=== PATIENT | male | born 1970 | race Caucasian/White ===

== ENCOUNTER → 2023-01-19 14:45 | Outpatient (CLI) | payer BC, SELFPAY ==
--- NOTE | ~2023-01-19 | XR_ITS ---
XR sacroiliac joints min 3V DATE: 01/19/2023 15:23 INDICATION: Back pain TECHNIQUE: AP and bilateral oblique views COMPARISON: None FINDINGS: The sacroiliac joints appear normal, without erosive change, ankylosis or any significant d egenerative change. No fracture or bone destruction of the sacrum is evident. IMPRESSION: Negative Reviewed, dictated and finalized at [facility]. Reviewed, dictated and finalized at location B. IMPRESSION: Negative
--- NOTE | ~2023-01-19 | XR_ITS ---
XR lumbar spine min 4V DATE: 01/19/2023 15:23 INDICATION: Back pain TECHNIQUE: AP, lateral, coned lateral lumbosacral and bilateral oblique views COMPARISON: None FINDINGS: Mild thoracolumbar levoscoliosis. 1 anterolisthesis at L4-5, presumably due to degenerative change at the apophyseal joints. There is mild degenerative spurring at L3-4 and L4-5. Lumbar and lumbosacral interspaces are relative ly preserved. No fracture or bone destruction or spondylolisthesis. The lumbar pedicles are intact. The sacroiliac joints appear normal. IMPRESSION: Mild degenerative change Reviewed, dictated and finalized at location B. IMPRESSION: Mild degenerative change
== END ==
PROVIDERS: PCP Family Medicine; Visit Provider Physician Assistant
DX: M54.9 Dorsalgia, unspecified (principal); M51.36 Other intervertebral disc degeneration, lumbar region
CPT/HCPCS: 72110; 72202

== ENCOUNTER 2023-02-13 01:26 | Day surgery (SDC) | payer BC, SELFPAY ==
[2023-02-02 14:55] VITALS: BMI 27.3
[2023-02-13 09:02] VITALS: BP 133/79; PULSE 73; RESP 16; TEMP 36.3; O2SAT 99
[2023-02-13] MEDS: LACTATED RINGERS 1,000 ML 150 ML IV CONT (09:13)
--- NOTE | 2023-02-13 09:35 | PM.HPGS ---
History of Present Illness History of Present Illness Consent: Risks, benefits, and alternatives have been discussed and questions answered. Patient agrees to proceed with procedure. Chief complaint: positive cologuard test Narrative: Rajat Conner is a 53 year old male Presents for screening colonoscopy. Patient recently found to have positive Cologuard test. Patient reports that his current weight appetite and bowel movements are normal. Patient denies abdominal pain. He has had no bleeding. Family history noncontributory. Patient's past medical history is significant for Parkinson's disease. Review of Systems Review of Systems: Review of systems noncontributory. [facility] Past Medical History Medical History (Updated 02/13/23 @ 09:37 by Chito Kamara MD) Elevated BP without diagnosis of hypertension Family history of heart disease Other fatigue Parkinsons disease Surgical History Surgical History (Updated 01/06/23 @ 10:59 by Juanita Zuluaga CMA) S/P deep brain stimulator placement Family History Family History Mother Hypertension Father Hypertension Patient's father is , Onset Age: 49 Grandparent Hypertension Social History Social History (Updated 01/06/23 @ 11:02 by Juanita Zuluaga CMA) Smoking status: Never smoker Second hand tobacco smoke exposure: No Alcohol intake: current Alcohol use details: rarely Substance use: never Substance use type: does not use Lack of Transportation: No Lack of Food: Never True Current Housing: I Have Housing Concerned About Future Housing: No Difficulty Paying Gas/Electric Bills: No Difficulty Paying for Meds: No Currently Unemployed: No Education: Bachelor's Degree Difficulty w/ Childcare or Family Care: No Living arrangements: with family Gender identity (if verbalized by the patient): Male Spiritual care concerns: No Meds Home Medications and Allergies Home Medications Medication Instructions Recorded Confirmed Type amantadine HCl 100 mg capsule 100 mg DAILY 10/28/19 02/02/23 History carbidopa 25 mg-levodopa 100 mg 1 tablet PO Q4H 01/06/23 02/13/23 History tablet carbidopa ER 25 mg-levodopa 100 mg 1 tablet PO QHS 01/06/23 02/02/23 History tablet,extended release docusate sodium 100 mg capsule 300 mg PO BID 01/06/23 02/02/23 History (Colace) melatonin 10 mg capsule 20 mg PO QHS 01/06/23 02/02/23 History rosuvastatin 20 mg tablet (Crestor) 20 mg PO DAILY #90 tabs 01/14/23 02/02/23 Rx fluticasone propionate 50 2 spray intranasal BID PRN Allergy 02/02/23 02/02/23 History mcg/actuation nasal Symptoms spray,suspension triamcinolone acetonide 0.1 % 1 applic topical BID PRN other 02/02/23 02/02/23 History topical cream Allergies Allergy/AdvReac Type Severity Reaction Status Date / Time No Known Allergies Allergy Unknown Verified 02/13/23 08:58 Vital Signs Vital Signs - 24 hr 02/13/23 09:02 Temperature 97.3 F L Pulse Rate 73 Respiratory Rate 16 Blood Pressure 133/79 Pulse Oximetry 99 Oxygen Delivery Room Air Exam Narrative: Physical exam reveals patient to be alert. Vital signs stable. HEENT exam is unremarkable. Patient is anicteric. Lungs are clear to auscultation and percussion. Heart is without murmur or extra sounds. Abdomen bowel sounds are present soft nontender with no hepatosplenomegaly. Digital external rectal exam is normal. Assessment and Plan Assessment and plan (1) Positive colorectal cancer screening using Cologuard test: Code(s): R19.5 - Other fecal abnormalities Status: Acute Assessment and Plan: Patient found to have positive Cologuard test. For this reason screening colonoscopy will be performed.
--- NOTE | 2023-02-13 09:37 | WPDANESEPPF ---
Anes - Initial Pre Proc Eval Procedure: Operation Date: 02/13/23 09:45 Proposed Procedures p Colonoscopy - Chito Kamara MD Date/Time: 02/13/23 09:37 Surgeon: Chito Kamara MD Pre Op Diagnosis: positive cologuard test Patient Data Age: 53 Gender: M Height: 1.8 m Weight: 90.8 kg Last Vital Signs Temp 97.3 F L 02/13/23 09:02 Pulse 73 02/13/23 09:02 Resp 16 02/13/23 09:02 BP 133/79 02/13/23 09:02 Pulse Ox 99 02/13/23 09:02 O2 Del Method Room Air 02/13/23 09:02 Allergies Allergy/AdvReac Type Severity Reaction Status Date / Time No Known Allergies Allergy Unknown Verified 02/13/23 08:58 Home Medications Medication Instructions Recorded Confirmed Type amantadine HCl 100 mg capsule 100 mg DAILY 10/28/19 02/02/23 History carbidopa 25 mg-levodopa 100 mg 1 tablet PO Q4H 01/06/23 02/13/23 History tablet carbidopa ER 25 mg-levodopa 100 mg 1 tablet PO QHS 01/06/23 02/02/23 History tablet,extended release docusate sodium 100 mg capsule 300 mg PO BID 01/06/23 02/02/23 History (Colace) melatonin 10 mg capsule 20 mg PO QHS 01/06/23 02/02/23 History rosuvastatin 20 mg tablet (Crestor) 20 mg PO DAILY #90 tabs 01/14/23 02/02/23 Rx fluticasone propionate 50 2 spray intranasal BID PRN Allergy 02/02/23 02/02/23 History mcg/actuation nasal Symptoms spray,suspension triamcinolone acetonide 0.1 % 1 applic topical BID PRN other 02/02/23 02/02/23 History topical cream Patient hx anesthesia problems: none Family hx anesthesia problems: none Results Review: All pre-operative results and documents have been reviewed as part of the pre-operative evaluation. [facility] Past Medical History Medical History (Updated 02/13/23 @ 09:37 by Chito Kamara MD) Elevated BP without diagnosis of hypertension Family history of heart disease Other fatigue Parkinsons disease Surgical History Surgical History (Updated 01/06/23 @ 10:59 by Juanita Zuluaga CMA) S/P deep brain stimulator placement Family History Family History Mother Hypertension Father Hypertension Patient's father is , Onset Age: 49 Grandparent Hypertension Social History Social History (Updated 01/06/23 @ 11:02 by Juanita Zuluaga CMA) Smoking status: Never smoker Second hand tobacco smoke exposure: No Alcohol intake: current Alcohol use details: rarely Substance use: never Substance use type: does not use Lack of Transportation: No Lack of Food: Never True Current Housing: I Have Housing Concerned About Future Housing: No Difficulty Paying Gas/Electric Bills: No Difficulty Paying for Meds: No Currently Unemployed: No Education: Bachelor's Degree Difficulty w/ Childcare or Family Care: No Living arrangements: with family Gender identity (if verbalized by the patient): Male Spiritual care concerns: No Anes - Eval Final PreProcedure Day of Procedure 02/13/23 09:37 Patient weight: normal Heart: regular rate and rhythm Lungs: clear to auscultation Airway: Mallampati scale class II Neurological: alert and oriented Last oral intake: >/= 8 hours ASA classification: III Emergent: no Anesthetic plan: proceed Anesthesia type and monitoring: general and standard monitoring Results Review: All pre-operative results and documents have been reviewed as part of the pre-operative evaluation. Informed Consent: The patient's anesthetic plan and its attendant risks and benefits were discussed with the patient/family/POA. Questions were solicited and answers provided to the satisfaction of the patient/family/POA.
[2023-02-13 10:12] VITALS: BP 109/70; PULSE 72; RESP 18; O2SAT 97
[2023-02-13 10:22] VITALS: BP 110/74; PULSE 67; RESP 20; O2SAT 98
[2023-02-13 10:32] VITALS: BP 125/84; PULSE 71; RESP 18; O2SAT 96
== END 2023-02-13 10:38 | disposition home or self-care (01) ==
PROVIDERS: PCP Family Medicine; Visit Provider Internal Medicine Gastroenterology
PROC: 0DJD8ZZ Inspection of Lower Intestinal Tract, Via Natural or Artificial Opening Endoscopic (ICD-10-PCS; CPT 45378; principal; 2023-02-13 09:45)
DX: R19.5 Other fecal abnormalities (principal); D12.8 Benign neoplasm of rectum; G20 Parkinson's disease
CPT/HCPCS: 45385; 88305; J2704; J7120

== ENCOUNTER → 2023-03-17 13:18 | Outpatient (CLI) | payer BC, SELFPAY ==
--- NOTE | ~2023-03-17 | CT_ITS ---
EXAMINATION: CT lumbar spine wo con DATE: 03/17/2023 13:39 INDICATION: Lumbar radiculopathy. TECHNIQUE: Computed tomography (CT) of the lumbar spine was performed without intravenous contrast. A utomated exposure control and iterative reconstruction technique were employed. The dose-length produ ct was 833.33 mGy-cm. COMPARISON: Lumbar spine radiographs 01/19/2023 FINDINGS: There are two 3 mm stones in right kidney. There is 3 degrees levocurvature of lumbar spine . Vertebral body heights are normal. There is mildly decreased disc height at L4-L5. The following di sc levels are specifically discussed: L1-L2: The disc does not extend beyond the endplate margin. There is moderate bilateral facet joint o steoarthritis. There is no neural foraminal stenosis. There is no central canal stenosis. L2-L3: The disc is bulging. There is mild right and severe left facet joint osteoarthritis. There is mild bilateral neural foraminal stenosis. There is mild central canal stenosis. L3-L4: The disc is bulging. There is severe right and mild left facet joint osteoarthritis. There is mild bilateral neural foraminal stenosis. There is mild central canal stenosis. L4-L5: The disc is bulging. There is severe bilateral facet joint osteoarthritis. There is mild right and moderate left neural foraminal stenosis. There is moderate central canal stenosis. L5-S1: The disc is bulging. There is moderate bilateral facet joint osteoarthritis. There is mild darius ateral neural foraminal stenosis. There is mild central canal stenosis. IMPRESSION: 1. Moderate spondylosis at L4-L5 and mild spondylosis at other levels. Reviewed, dictated and finalized at location A.
== END ==
PROVIDERS: PCP Family Medicine; Visit Provider Physical Medicine & Rehabilitation
DX: M47.26 Other spondylosis with radiculopathy, lumbar region (principal)
CPT/HCPCS: 72131

== ENCOUNTER 2023-04-16 09:31 | Outpatient (CLI) | payer BC, SELFPAY ==
--- NOTE | 2023-04-16 11:00 | NEURO_ITS ---
Impression: # Complains of numbness of hands. History of Parkinsonism for over 10 years.. # No Carpal Tunnel Syndrome # Bilateral ulnar neuropathy across the elbows. # Needle/EMG exam revealed rhythmic tremors but no fibrillations in upper extremities. Nerve Conduction Studies Anti Sensory Summary Table Stim Site NR Peak (ms) P-T Amp (?V) Site1 Site2 Delta-P (ms) Dist (cm) Evert (m/s) Left Median Anti Sensory (2-3nd Digit) Wrist 3.0 29.1 Wrist 2-3nd Digit 3.0 14.0 47 Wrist 2.8 28.9 Wrist 2-3nd Digit 3.0 14.0 47 Right Median Anti Sensory (2-3nd Digit) Wrist 2.9 58.7 Wrist 2-3nd Digit 2.9 14.0 48 Wrist 2.5 38.3 Wrist 2-3nd Digit 2.9 14.0 48 Left Radial Anti Sensory (Base 1st Digit) Wrist 2.1 26.4 Wrist Base 1st Digit 2.1 0.0 Right Radial Anti Sensory (Base 1st Digit) Wrist 2.2 22.2 Wrist Base 1st Digit 2.2 0.0 Left Ulnar Anti Sensory (5th Digit) Wrist 2.9 36.9 Wrist 5th Digit 2.9 14.0 48 Right Ulnar Anti Sensory (5th Digit) Wrist 3.6 4.0 Wrist 5th Digit 3.6 14.0 39 Motor Summary Table Stim Site NR Onset (ms) O-P Amp (mV) Site1 Site2 Delta-0 (ms) Dist (cm) Evert (m/s) Left Median Motor (Abd Poll Brev) Wrist 3.4 2.8 Elbow Wrist 5.0 30.0 60 Elbow 8.4 3.1 Right Median Motor (Abd Poll Brev) Wrist 3.6 4.5 Elbow Wrist 5.2 27.0 52 Elbow 8.8 3.8 Left Ulnar Motor (Abd Dig Minimi) Wrist 2.5 4.9 A Elbow Wrist 6.6 30.0 45 A Elbow 9.1 2.8 B Elbow Wrist 4.2 26.0 62 B Elbow 6.7 3.4 Right Ulnar Motor (Abd Dig Minimi) Wrist 2.9 1.1 A Elbow Wrist 8.1 31.0 38 A Elbow 11.0 0.4 B Elbow Wrist 3.9 22.0 56 B Elbow 6.8 0.2 F Wave Studies NR F-Lat (ms) L-R F-Lat (ms) Left Median (Mrkrs) (Abd Poll Brev) 29.61 0.08 Right Median (Mrkrs) (Abd Poll Brev) 29.69 0.08 Left Ulnar (Mrkrs) (Abd Dig Min) 30.26 0.79 Right Ulnar (Mrkrs) (Abd Dig Min) 29.47 0.79 EMG Side Muscle Nerve Root Ins Act Fibs Amp Dur Recrt Comment Right 1stDorInt Ulnar C8-T1 Nml Nml Nml Nml Nml Right Ext Indicis Radial (Post Int) C7-8 Nml Nml Nml Nml Nml Right Ext Digitorum Radial (Post Int) C7-8 Nml Nml Nml Nml Nml Right BrachioRad Radial C5-6 Nml Nml Nml Nml Nml Right PronatorTeres Median C6-7 Nml Nml Nml Nml Nml Right Abd Poll Brev Median C8-T1 Nml Nml Nml Nml Nml Left 1stDorInt Ulnar C8-T1 Nml Nml Nml Nml Nml Left Ext Indicis Radial (Post Int) C7-8 Nml Nml Nml Nml Nml Left Ext Digitorum Radial (Post Int) C7-8 Nml Nml Nml Nml Nml Left BrachioRad Radial C5-6 Nml Nml Nml Nml Nml Left PronatorTeres Median C6-7 Nml Nml Nml Nml Nml Left Abd Poll Brev Median C8-T1 Nml Nml Nml Nml Nml Right Biceps Musculocut C5-6 Nml Nml Nml Nml Nml Right Triceps Radial C6-7-8 Nml Nml Nml Nml Nml Right Deltoid Axillary C5-6 Nml Nml Nml Nml Nml Left Biceps Musculocut C5-6 Nml Nml Nml Nml Nml Left Triceps Radial C6-7-8 Nml Nml Nml Nml Nml Left Deltoid Axillary C5-6 Nml Nml Nml Nml Nml MTDD
== END 2023-04-16 09:32 | disposition home or self-care (01) ==
PROVIDERS: PCP Family Medicine; Visit Provider Family Medicine
DX: R20.0 Anesthesia of skin (principal); G56.23 Lesion of ulnar nerve, bilateral upper limbs
CPT/HCPCS: 95886; 95911

== ENCOUNTER 2024-03-06 17:19 | Emergency (ER) | payer BC, SELFPAY ==
--- NOTE | ~2024-03-06 | XR_ITS ---
EXAMINATION: XR finger 1st RT min 2V DATE: 03/06/2024 17:39 INDICATION: Boxing injury with pain and swelling at the right thumb TECHNIQUE: Dorsal palmar, lateral and 2 oblique views of the right first digit were obtained COMPARISON: None FINDINGS: Bone alignment is normal. No acute fracture. Mild polyarticular osteoarthritis at the triscaphe, firs t carpometacarpal, first metacarpophalangeal and first interphalangeal joints. Prominent osteophyte a long the dorsal/radial aspect of the base of the first proximal phalanx which appears more prominent than typical and disproportionate to the relatively mild joint space narrowing. The location and appe arance suggests possibility of either an old healed avulsion fracture fragment or heterotopic ossific ation related to an avulsive soft tissue injury of the extensor pollicis brevis tendon, radial collat eral ligament or joint capsule. Mild soft tissue swelling about the first metacarpophalangeal joint. Multiple projections there are some surgical clips projecting over the ulnar/palmar aspect of the car pus. IMPRESSION: 1. No acute osseous abnormality. Reviewed, dictated and finalized at location A.
[2024-03-06 17:25] VITALS: BP 124/86; PULSE 70; RESP 16; TEMP 36.6; O2SAT 98
--- NOTE | 2024-03-06 17:27 | ED.UPPEXIN ---
HPI - Extremity Injury (Upper) General Chief Complaint: Extremity Injury, Upper Stated Complaint: Rt Thumb Pain Time Seen by Provider: 03/06/24 17:28 Source: patient Mode of arrival: ambulatory Limitations: no limitations History of Present Illness HPI narrative: 54 yo M presents with c/o R thumb pain with swelling. Today pt was wrestling around with son and punching each other, play fighting, and his thumb on his son's arm. Instant pain. Swelling becoming progressively worse. ROM decreased due to pain and swelling. NV intact. all systems reviewed and negative except as noted above. Related Data Home Medications Medication Instructions Recorded Confirmed amantadine HCl 100 mg capsule 100 mg PO BID 10/28/19 03/06/24 carbidopa 25 mg-levodopa 100 mg 1 tablet PO Q4H 01/06/23 03/06/24 tablet carbidopa ER 25 mg-levodopa 100 mg 1 tablet PO QHS 01/06/23 03/06/24 tablet,extended release docusate sodium 100 mg capsule 300 mg PO BID 01/06/23 03/06/24 (Colace) melatonin 10 mg capsule 20 mg PO QHS 01/06/23 03/06/24 fluticasone propionate 50 2 spray intranasal BID PRN Allergy 02/02/23 03/06/24 mcg/actuation nasal Symptoms spray,suspension sildenafil 25 mg tablet 25 mg PO PRN PRN Sexual Activity 03/06/24 03/06/24 Allergies Allergy/AdvReac Type Severity Reaction Status Date / Time No Known Allergies Allergy Unknown Verified 03/06/24 17:23 Review of Systems Review of Systems: CONSTITUTIONAL: Denies fever, chills, or sweats. EYES: Denies visual changes, redness, or discharge. ENT: Denies rhinorrhea, congestion, sore throat, or otalgia. CARDIOVASCULAR: Denies chest pain, palpitations, or edema. RESPIRATORY: Denies cough or dyspnea. GASTROINTESTINAL: Denies abdominal pain, nausea, vomiting, or diarrhea. GENITOURINARY: Denies dysuria or hematuria. SKIN: Denies rash or itching. MUSCULOSKELETAL: Denies back pain or myalgia. Reports pain and swelling to right thumb. NEUROLOGIC: Denies headache, numbness, or weakness. PSYCHIATRIC: Denies anxiety or depression. All other systems reviewed are negative, except as documented in HPI. [facility] Past Medical History Medical History Elevated BP without diagnosis of hypertension Family history of heart disease Other fatigue Parkinsons disease Ulnar neuropathy of both upper extremities Surgical History Surgical History S/P deep brain stimulator placement Family History Family History Mother Hypertension Father Hypertension Patient's father is , Onset Age: 49 Grandparent Hypertension Social History Social History Smoking status: Never smoker Second hand tobacco smoke exposure: No Alcohol intake: current Alcohol use details: rarely Substance use: never Substance use type: does not use Lack of Transportation: No Lack of Food: Never True Current Housing: I Have Housing Concerned About Future Housing: No Difficulty Paying Gas/Electric Bills: No Difficulty Paying for Meds: No Currently Unemployed: No Education: Bachelor's Degree Difficulty w/ Childcare or Family Care: No Living arrangements: with family Gender identity (if verbalized by the patient): Male Spiritual care concerns: No Comments At time of signature, agree with nursing past medical, surgical, social and family history. There is no relevant family history pertinent to the presenting complaint. Exam Narrative: GENERAL: This is a well-nourished, well-developed patient, in no apparent distress. HEAD: normocephalic, atraumatic. EYES: PERRL. Sclera clear/white. Vision is grossly intact. EARS: External ears normal NOSE: External nose normal NECK: Neck supple, non-tender without lymphadenopath
== END 2024-03-06 18:10 | disposition home or self-care (01) ==
PROVIDERS: Emergency Provider Nurse Practitioner Family; PCP Family Medicine
DX: S63.601A Unspecified sprain of right thumb, initial encounter (principal); Y93.83 Activity, rough housing and horseplay; Y93.9 Activity, unspecified; G20.A1 Parkinson's disease without dyskinesia, without mention of fluctuations; Z96.82 Presence of neurostimulator
CPT/HCPCS: 29130; 73140; 99213; G0463

== ENCOUNTER 2024-09-21 08:30 | Emergency (ER) | payer BC, SELFPAY ==
[2024-09-21 08:39] VITALS: BP 128/87; PULSE 91; RESP 16; TEMP 36.9; O2SAT 96
--- NOTE | 2024-09-21 08:51 | ED.EAR ---
HPI - Ear Problem General Chief complaint: Ear Stated complaint: RT Ear Pain Time Seen by Provider: 09/21/24 08:51 Source: patient Mode of arrival: ambulatory Limitations: no limitations History of Present Illness HPI Narrative: 54-year-old male presents with complaint of right ear pain for 2 days. Patient reports pain, muffled hearing and drainage from right ear. Afebrile. All systems reviewed and negative except as noted above. Related Data Home Medications Medication Instructions Recorded Confirmed amantadine HCl 100 mg capsule 100 mg PO BID 10/28/19 09/21/24 carbidopa 25 mg-levodopa 100 mg 1 tablet PO Q4H 01/06/23 09/21/24 tablet carbidopa ER 25 mg-levodopa 100 mg 1 tablet PO QHS 01/06/23 09/21/24 tablet,extended release docusate sodium 100 mg capsule 300 mg PO BID 01/06/23 09/21/24 (Colace) melatonin 10 mg capsule 20 mg PO QHS 01/06/23 09/21/24 fluticasone propionate 50 2 spray intranasal BID PRN Allergy 02/02/23 09/21/24 mcg/actuation nasal Symptoms spray,suspension sildenafil 25 mg tablet 25 mg PO PRN PRN Sexual Activity 03/06/24 09/21/24 Allergies Allergy/AdvReac Type Severity Reaction Status Date / Time No Known Allergies Allergy Unknown Verified 09/21/24 08:36 Review of Systems Review of Systems: CONSTITUTIONAL: Denies fever, chills, or sweats. EYES: Denies visual changes, redness, or discharge. ENT: Denies rhinorrhea, congestion, sore throat . Reports right ear pain, muffled hearing and drainage. CARDIOVASCULAR: Denies chest pain, palpitations, or edema. RESPIRATORY: Denies cough or dyspnea. GASTROINTESTINAL: Denies abdominal pain, nausea, vomiting, or diarrhea. GENITOURINARY: Denies dysuria or hematuria. SKIN: Denies rash or itching. MUSCULOSKELETAL: Denies back pain, joint pain, or myalgia. NEUROLOGIC: Denies headache, numbness, or weakness. PSYCHIATRIC: Denies anxiety or depression. All other systems reviewed are negative, except as documented in HPI. [facility] Past Medical History Medical History Elevated BP without diagnosis of hypertension Family history of heart disease Other fatigue Parkinsons disease Ulnar neuropathy of both upper extremities Surgical History Surgical History S/P deep brain stimulator placement Family History Family History Mother Hypertension Father Hypertension Patient's father is , Onset Age: 49 Grandparent Hypertension Social History Social History Smoking status: Never smoker Second hand tobacco smoke exposure: No Alcohol intake: current Alcohol use details: rarely Substance use: never Substance use type: does not use Lack of Transportation: No Lack of Food: Never True Current Housing: I Have Housing Concerned About Future Housing: No Difficulty Paying Gas/Electric Bills: No Difficulty Paying for Meds: No Currently Unemployed: No Education: Bachelor's Degree Difficulty w/ Childcare or Family Care: No Living arrangements: with family Gender identity (if verbalized by the patient): Male Spiritual care concerns: No Comments At time of signature, agree with nursing past medical, surgical, social and family history. There is no relevant family history pertinent to the presenting complaint. Exam Narrative: GENERAL: This is a well-nourished, well-developed patient, in no apparent distress. HEAD: normocephalic, atraumatic. EYES: PERRL. Sclera clear/white. Vision is grossly intact. EARS: External ears normal, Left auditory canal is normal. Right canal is erythematous, swollen with purulent yellow drainage. Bilateral TMs normal without perforation. NOSE: External nose normal NECK: Neck supple, non-tender without lymphadenopathy, masses or thyromegaly. CARDIOVASCULAR: Regular rate and rhythm without murmurs, gallops, or rubs. RESPIRATORY: Clear to auscultation. Breath sounds equal bilaterally. No wheezes, rales, or rhonchi. SKIN: warm, Dry, intact with no suspicious lesions or rash, good texture and turgor. NEURO: awake, alert, and oriented to person, place and time. There were no obvious focal neurologic abnormalities. EXTREMITIES: No joint tenderness, effusion, or edema noted. Course Course Level of Care: Express Care Visit Vital Signs Vital signs: Vital Signs Temperature 36.9 C 09/21/24 08:39 Pulse Rate 91 09/21/24 08:39 Respiratory Rate 16 09/21/24 08:39 Blood Pressure 128/87 09/21/24 08:39 Pulse Oximetry 96 09/21/24 08:39 Oxygen Delivery Room Air 09/21/24 08:39 Temperature 36.9 C 09/21/24 08:39 Pulse Rate 91 09/21/24 08:39 Respiratory Rate 16 09/21/24 08:39 Blood Pressure 128/87 09/21/24 08:39 Pulse Oximetry 96 09/21/24 08:39 Oxygen Delivery Room Air 09/21/24 08:39 Reviewed Medical Decision Making MDM Narrative Medical decision making narrative: Patient is aware of diagnosis, understands and agrees to treatment plan. Anticipatory guidance given. Patient agrees to follow-up as directed and is aware of reasons to seek care at the emergency department. Portions of this record may have been created with voice recognition software Vital Signs Vital Signs: Vital Signs Temperature 36.9 C 09/21/24 08:39 Pulse Rate 91 09/21/24 08:39 Respiratory Rate 16 09/21/24 08:39 Blood Pressure 128/87 09/21/24 08:39 Pulse Oximetry 96 09/21/24 08:39 Oxygen Delivery Room Air 09/21/24 08:39 Temperature 36.9 C 09/21/24 08:39 Pulse Rate 91 09/21/24 08:39 Respiratory Rate 16 09/21/24 08:39 Blood Pressure 128/87 09/21/24 08:39 Pulse Oximetry 96 09/21/24 08:39 Oxygen Delivery Room Air 09/21/24 08:39 Discharge Plan Discharge Clinical Impression: Otitis externa of right ear Qualifiers: Chronicity: acute Patient Disposition: Home, Self-Care Condition: Stable Instructions: Antibiotic Form, Swimmer's Ear (ED) Additional Instructions: Place antibiotic ear drops as prescribed. Take tyelnol or ibuprofen every 6 to 8 hours as needed for pain. Follow-up with your primary care physician if symptoms not improving. Prescriptions: New ofloxacin 0.3 % drops 10 drp RIGHT EAR DAILY 7 Days Qty: 5 0RF No Action amantadine HCl 100 mg capsule 100 mg PO BID carbidopa-levodopa 25-100 mg tablet 1 tablet PO Q4H Patient Comments: While awake sildenafil 25 mg tablet 25 mg PO PRN PRN (Reason: Sexual Activity) carbidopa-levodopa 25-100 mg tablet extended release 1 tablet PO QHS docusate sodium [Colace] 100 mg capsule 300 mg PO BID melatonin 10 mg capsule 20 mg PO QHS fluticasone propionate 50 mcg/actuation spray,suspension 2 spray NASAL BID PRN (Reason: Allergy Symptoms) Rx Instructions: administer into each nostril rosuvastatin 20 mg tablet 20 mg PO DAILY Qty: 90 2RF Follow-up/Referrals: Balbina Quiñonez MD [Primary Care Provider] - Time of Disposition: 08:56
== END 2024-09-21 08:58 | disposition home or self-care (01) ==
PROVIDERS: Emergency Provider Nurse Practitioner Family; PCP Family Medicine
DX: H60.91 Unspecified otitis externa, right ear (principal); G20.A1 Parkinson's disease without dyskinesia, without mention of fluctuations
CPT/HCPCS: 99213; G0463

== ENCOUNTER 2024-09-24 12:29 | Emergency (ER) | payer BC, SELFPAY ==
[2024-09-24 12:42] VITALS: BP 121/75; PULSE 94; RESP 18; TEMP 36.9; O2SAT 97
--- NOTE | 2024-09-24 12:52 | ED.URI ---
HPI - URI/Sore Throat General Chief Complaint: Upper Respiratory Infection Stated Complaint: coughing and sinus irritation Time Seen by Provider: 09/24/24 12:55 Source: patient, RN notes reviewed and old records reviewed Mode of arrival: ambulatory Limitations: no limitations History of Present Illness HPI Narrative: 54-year-old male presents to the [facility] with sinus congestion, coughing. Patient reports he has had symptoms for 2 weeks. Still having ear discomfort. Was seen 3 days ago for ear pain, diagnosed with an otitis externa. Was prescribed ear drops. Onset (ago): week(s) (2) Treatments prior to arrival: other (Ear drops) Related Data Home Medications Medication Instructions Recorded Confirmed amantadine HCl 100 mg capsule 100 mg PO BID 10/28/19 09/24/24 carbidopa 25 mg-levodopa 100 mg 1 tablet PO Q4H 01/06/23 09/24/24 tablet carbidopa ER 25 mg-levodopa 100 mg 1 tablet PO QHS 01/06/23 09/24/24 tablet,extended release docusate sodium 100 mg capsule 300 mg PO BID 01/06/23 09/24/24 (Colace) melatonin 10 mg capsule 20 mg PO QHS 01/06/23 09/24/24 fluticasone propionate 50 2 spray intranasal BID PRN Allergy 02/02/23 09/24/24 mcg/actuation nasal Symptoms spray,suspension sildenafil 25 mg tablet 25 mg PO PRN PRN Sexual Activity 03/06/24 09/24/24 Allergies Allergy/AdvReac Type Severity Reaction Status Date / Time No Known Allergies Allergy Unknown Verified 09/24/24 12:56 Review of Systems Review of Systems: All systems reviewed & are unremarkable except as noted in HPI and below Constitutional: Constitutional: Reports no additional constitutional complaints ENT: Reports as per HPI, Reports otalgia and Reports nasal congestion Cardiovascular: Cardiovascular: Reports no additional cardiovascular complaints, Denies chest pain and Denies dyspnea Respiratory: Respiratory: Reports as per HPI, Denies chest congestion, Reports cough and Denies dyspnea Gastrointestinal: Gastrointestinal: Reports no additional gastrointestinal complaints, Denies abdominal pain, Denies nausea and Denies vomiting Musculoskeletal: Musculoskeletal: Reports no additional musculoskeletal complaints Integumentary/Breasts: Skin/Breast: Reports system reviewed and no additional complaints, except as docu PMFSH Past Medical History Medical History Elevated BP without diagnosis of hypertension Family history of heart disease Other fatigue Parkinsons disease Ulnar neuropathy of both upper extremities Surgical History Surgical History S/P deep brain stimulator placement Family History Family History Mother Hypertension Father Hypertension Patient's father is , Onset Age: 49 Grandparent Hypertension Social History Social History Smoking status: Never smoker Second hand tobacco smoke exposure: No Alcohol intake: current Alcohol use details: rarely Substance use: never Substance use type: does not use Lack of Transportation: No Lack of Food: Never True Current Housing: I Have Housing Concerned About Future Housing: No Difficulty Paying Gas/Electric Bills: No Difficulty Paying for Meds: No Currently Unemployed: No Education: Bachelor's Degree Difficulty w/ Childcare or Family Care: No Living arrangements: with family Gender identity (if verbalized by the patient): Male Spiritual care concerns: No Comments At the time of my signature, I reviewed and agree with the nursing past medical, surgical, social, and family history. There is no relevant family history pertinent to the patient complaint. Exam Const: General: cooperative, healthy appearing, comfortable, no acute distress, well developed, alert and well nourished Nutritional Appearance: well nourished Orientation/consciousness: patient oriented x3 Limitations: no limitations HENMT: Head: normal to inspection Ears: hearing grossly normal bilaterally, external ears normal, TM's normal bilaterally and Abnormal EAC present erythema on the right, edema on the right and otic discharge purulent on the right Face/Nose/Sinus: Normal external nose present, normal facial exam and face symmetric Face and sinus: normal facial exam and face symmetric Mouth: Yes Normal oral and palatal mucosa present, Yes lip normal and Yes tongue normal Throat: posterior oropharynx normal, uvula midline, postnasal drainage and no uvular edema Eyes: General: appearance normal, both eyes and all related structures Alignment and Position: alignment normal Periorbital: periorbital findings normal Neck: Neck: normal visual inspection, full ROM, no lymphadenopathy and no meningeal signs Chest: Chest palpation & inspection: normal inspection of the chest Resp: Effort & Inspection: normal respiratory effort and able to speak in complete sentences Auscultation: clear to auscultation bilaterally, no crackles, no rales, no rhonchi and no wheezes Cardio: Rate: regular rate Skin: General skin exam: normal color and no rashes or lesions noted Lesions: no lesions Rashes: no rashes Wounds: no wounds Neuro: General: patient oriented x3, gait normal, tone normal, moves all extremities and no meningeal signs Cognition (Neuro): normal cognition Speech: normal speech Gait exam (Neuro): Normal gait present Extrem: General: normal to inspection, full ROM, capillary refill normal and normal gait Psych: Appearance: grossly normal and well kempt Mental Status: mental status grossly normal Speech and movement: Normal speech and movement present and Clear speech present Affect: normal affect Attitude: cooperative Course Course Level of Care: Express Care Visit Vital Signs Vital signs: Vital Signs Temperature 98.4 F 09/24/24 12:42 Pulse Rate 94 09/24/24 12:42 Respiratory Rate 18 09/24/24 12:42 Blood Pressure 121/75 09/24/24 12:42 Pulse Oximetry 97 09/24/24 12:42 Oxygen Delivery Room Air 09/24/24 12:42 Temperature 98.4 F 09/24/24 12:42 Pulse Rate 94 09/24/24 12:42 Respiratory Rate 18 09/24/24 12:42 Blood Pressure 121/75 09/24/24 12:42 Pulse Oximetry 97 09/24/24 12:42 Oxygen Delivery Room Air 09/24/24 12:42 Reviewed MDM - URI/Sore Throat MDM Narrative Medical decision making narrative: Patient sitting comfortably in exam room. Nontoxic, vitals stable. Patient presents with a 2 week history of cough, sinus congestion. Continued discomfort to the right ear. Otitis externa noted to the right ear, encourage patient to follow-up and use ear drops. Two week history of sinus side is, will treat with antibiotic Encourage patient to follow-up with primary care provider in ENT, ENT names and numbers given Patient appropriate for outpatient treatment and follow-up Discharge instructions reviewed with patient, as well as provided in writing per nursing staff. The instructions also include specific and strict return/GO TO THE ER as well as f/u information. All questions have been answered, and the patient deny any further questions with discharge and discharge plan. Some parts of this dictation were generated by voice recognition software and may contain typographical and/or grammatical inaccuracies. Differential Diagnosis Differential diagnosis: Likely upper respiratory infection, otitis media, sinusitis, viral infection and bronchitis Critical Care Time Critical Care Time Critical Care Time: No Discharge Plan Discharge Clinical Impression: Sinusitis, Acute otitis externa of right ear, PND (post-nasal drip) Patient Disposition: Home, Self-Care Condition: Stable Instructions: Antibiotic Form, Sinusitis (ED), Swimmer's Ear (ED), Postnasal Drip (DC) Additional Instructions: Follow-up with your primary care provider and or ENT within 1 week Continue to use ear drops as prescribed Take the oral antibiotic as prescribed For new or worsening symptoms go directly to the emergency room Patient Language: Ukrainian Prescriptions: New amoxicillin-pot clavulanate 875-125 mg tablet 1 tablet PO Q12H Qty: 14 0RF No Action amantadine HCl 100 mg capsule 100 mg PO BID carbidopa-levodopa 25-100 mg tablet 1 tablet PO Q4H Patient Comments: While awake sildenafil 25 mg tablet 25 mg PO PRN PRN (Reason: Sexual Activity) ofloxacin 0.3 % drops 10 drp RIGHT EAR DAILY 7 Days Qty: 5 0RF carbidopa-levodopa 25-100 mg tablet extended release 1 tablet PO QHS docusate sodium [Colace] 100 mg capsule 300 mg PO BID melatonin 10 mg capsule 20 mg PO QHS fluticasone propionate 50 mcg/actuation spray,suspension 2 spray NASAL BID PRN (Reason: Allergy Symptoms) Rx Instructions: administer into each nostril rosuvastatin 20 mg tablet 20 mg PO DAILY Qty: 90 2RF Follow-up/Referrals: Balbina Quiñonez MD [Primary Care Provider] - 3 Days (express care follow up ) Db Pop M.D. [Physician] - Leonardo Freedman MD [Physician] - 3 Days Time of Disposition: 13:03
== END 2024-09-24 13:10 | disposition home or self-care (01) ==
PROVIDERS: Emergency Provider Nurse Practitioner; PCP Family Medicine
DX: J32.9 Chronic sinusitis, unspecified (principal); H60.91 Unspecified otitis externa, right ear; R09.82 Postnasal drip; G20.A1 Parkinson's disease without dyskinesia, without mention of fluctuations; Z96.82 Presence of neurostimulator
CPT/HCPCS: 99213; G0463

== ENCOUNTER 2025-09-19 09:08 | Emergency (ER) | payer BC, SELFPAY ==
--- NOTE | ~2025-09-19 | XR_ITS ---
EXAMINATION: XR ribs RT 2V, 09/19/2025 9:22 [employer] HISTORY: fall on thursday, pain / anterior ribs COMPARISON: No comparisons available. Findings: No acute fracture or malalignment. No significant degenerative changes. Soft tissues unremarkable. Impression: No acute fracture or malalignment. Reviewed, dictated and finalized at location [facility] [facility] Impression: No acute fracture or malalignment.
[2025-09-19 09:14] VITALS: BP 143/82; PULSE 68; RESP 20; TEMP 36.5
--- NOTE | 2025-09-19 09:21 | ED.FALL ---
HPI - Fall General Chief Complaint: Extremity Injury, Upper Stated Complaint: RT Rib Pain Time Seen by Provider: 09/19/25 09:10 Source: patient Mode of arrival: ambulatory Limitations: no limitations History of Present Illness HPI Narrative: Patient is a 55-year-old male who presents with right anterior lateral rib pain for 3 days. States Thursday he slipped getting out of the pool and landed on his ribs. Denies hitting his head, any chest pain or shortness of breath. States pain is worse when he has dyskinesia from his Parkinson's or moving certain directions. Has been taking Tylenol and ibuprofen. Denies any bruising or swelling. Related Data Home Medications ?Medication ?Instructions ?Recorded ?Confirmed ?Last Taken ?Type amantadine HCl 100 mg capsule 100 mg PO BID 10/28/19 03/10/25 Unknown History carbidopa 25 mg-levodopa 100 mg 1 tablet PO Q4H 01/06/23 03/10/25 02/13/23 06:30 History tablet carbidopa ER 25 mg-levodopa 100 mg 1 tablet PO QHS 01/06/23 03/10/25 Unknown History tablet,extended release docusate sodium 100 mg capsule 300 mg PO BID 01/06/23 03/10/25 Unknown History (Colace) melatonin 10 mg capsule 20 mg PO QHS 01/06/23 03/10/25 Unknown History fluticasone propionate 50 2 spray intranasal BID PRN Allergy 02/02/23 03/10/25 Unknown History mcg/actuation nasal Symptoms spray,suspension sildenafil 25 mg tablet 25 mg PO PRN PRN Sexual Activity 03/06/24 03/10/25 Unknown History Allergies Allergy/AdvReac Type Severity Reaction Status Date / Time No Known Allergies Allergy Unknown Verified 09/19/25 09:12 Review of Systems Review of Systems: All systems reviewed & are unremarkable except as noted in HPI and below Constitutional: Constitutional: Denies body ache(s), Denies chills, Denies fatigue, Denies fever(s), Denies headache(s), Denies malaise and Denies weakness Eyes: Eyes: Denies blurry vision, Denies irritation and Denies loss of vision ENT: Denies otalgia, Denies headache(s), Denies nasal discharge, Denies sinus pain and Denies sore throat Cardiovascular: Cardiovascular: Denies chest pain, Denies irregular heart rhythm and Denies dyspnea Respiratory: Respiratory: Denies dyspnea Gastrointestinal: Gastrointestinal: Denies abdominal pain, Denies melena, Denies hematochezia, Denies diarrhea, Denies nausea and Denies vomiting Musculoskeletal: Musculoskeletal: Denies back pain, Reports myalgias and Denies arthralgias Integumentary/Breasts: Skin/Breast: Denies pruritus and Denies rash Neurologic: Denies headache(s), Denies loss of vision and Denies weakness Psychiatric: Psychiatric: Reports no additional psychiatric complaints Endocrine: Endocrine: Denies fatigue PMFSH Past Medical History Medical History Ulnar neuropathy of both upper extremities Parkinsons disease Other fatigue Family history of heart disease Elevated BP without diagnosis of hypertension Surgical History Surgical History S/P deep brain stimulator placement Family History Family History Mother Hypertension Father Hypertension Patient's father is , Onset Age: 49 Grandparent Hypertension Social History Social History Smoking status: Never smoker Second hand tobacco smoke exposure: No Alcohol intake: current Alcohol use details: rarely Substance use: never Substance use type: does not use Lack of Transportation: No Lack of Food: Never True Current Housing: I Have Housing Concerned About Future Housing: No Difficulty Paying Gas/Electric Bills: No Difficulty Paying for Meds: No Currently Unemployed: No Education: Bachelor's Degree Difficulty w/ Childcare or Family Care: No Living arrangements: with family Gender identity (if verbalized by the patient): Male Spiritual care concerns: No Comments At time of signature, agree with nursing past medical, surgical, social and family history. There is no relevant family history pertinent to the presenting complaint. Exam Const: General: cooperative, healthy appearing, comfortable, no acute distress and well nourished Nutritional Appearance: well nourished Orientation/consciousness: patient oriented x3 Limitations: no limitations HENMT: Head: normal to inspection, normocephalic and atraumatic Ears: hearing grossly normal bilaterally and external ears normal Face/Nose/Sinus: Normal external nose present, normal facial exam and face symmetric Face and sinus: normal facial exam and face symmetric Mouth: Yes lip normal Eyes: General: appearance normal, both eyes and all related structures Alignment and Position: alignment normal and position normal Periorbital: periorbital findings normal Eyelids: eyelids normal Pupils: Equal, round and reactive pupils present EOM: EOMs intact bilaterally Neck: Neck: normal visual inspection, full ROM and supple Chest: Chest palpation & inspection: normal inspection of the chest and tenderness rib ( No bruising) anterior-axillary line involving the 8th rib and involving the 9th rib Resp: Effort & Inspection: normal respiratory effort and able to speak in complete sentences Auscultation: clear to auscultation bilaterally Cardio: Rate: regular rate Rhythm: regular rhythm Heart sounds: S1 normal heart sound present and S2 normal heart sound present GI: Inspection: normal to inspection Skin: General skin exam: normal color and no rashes or lesions noted Neuro: General: patient oriented x3 and moves all extremities Cranial nerves: Yes Equal, round and reactive pupils present Speech: normal speech Gait exam (Neuro): Normal gait present Extrem: General: normal to inspection, full ROM and no edema Psych: Appearance: grossly normal and well kempt Mental Status: mental status grossly normal Speech and movement: Normal speech and movement present Affect: normal affect Attitude: cooperative Thought process: Normal thought process present Course Course Emergency Course: Patient is aware of diagnosis, understands and agrees to treatment plan. Anticipatory guidance given. Patient agrees to follow-up as directed and is aware of reasons to seek care at the emergency department. Portions of this record may have been created with voice recognition software Level of Care: Express Care Visit Vital Signs Vital signs: Vital Signs Temperature 36.5 C 09/19/25 09:14 Pulse Rate 68 09/19/25 09:14 Respiratory Rate 20 09/19/25 09:14 Blood Pressure 143/82 H 09/19/25 09:14 Oxygen Delivery Room Air 09/19/25 09:14 Temperature 36.5 C 09/19/25 09:14 Pulse Rate 68 09/19/25 09:14 Respiratory Rate 20 09/19/25 09:14 Blood Pressure 143/82 H 09/19/25 09:14 Oxygen Delivery Room Air 09/19/25 09:14 Reviewed MDM - Fall MDM Narrative Medical decision making narrative: will prescribe muscle relaxers to try to help with spasms. x-ray showed no fractures Pt well hydrated appearing, in no respiratory distress, hemodynamically stable. Recommend supportive care. The patient is stable at time of discharge the clinical impression was discussed and the patient was given the opportunity to ask questions, which were addressed as completely as possible given the information available at present. Anticipatory guidance and return to care precautions were discussed and the importance of primary care follow-up was stressed and encouraged. The patient voiced understanding of the plan, indications to return, and the need for follow-up. Exam findings show no acute concerns or changes Patient is appropriate for outpatient treatment and follow-up. Differential Diagnosis Differential diagnosis: Likely other ( rib contusion, rib fracture) Medical Records Attestation: I reviewed the patient's medical records. Imaging Data Radiologist's impression: EXAMINATION: XR ribs RT 2V, 09/19/2025 9:22 [facility] [employer] HISTORY: fall on thursday, pain 8th/9th anterior ribs COMPARISON: No comparisons available. Findings: No acute fracture or malalignment. No significant degenerative changes. Soft tissues unremarkable. Impression: No acute fracture or malalignment. Reviewed, dictated and finalized at location P. [facility] Discharge Plan Discharge Clinical Impression: Muscle strain of anterior chest wall Patient Disposition: Home Condition: Stable Instructions: Muscle Strain (ED) Additional Instructions: Take muscles relaxers as needed. They can make you sleepy so do not drive. Avoid activities that cause pain until the pain subsides. Ice to the area 20-30 minutes 4-6 times a day For pain, you may take: Tylenol 650-1000mg by mouth every 4-6 hours. Do not exceed 4000mg in 24 hours. Advil (Ibuprofen) 600 mg by mouth every 6 hours. Do not exceed 2400mg in 24 hours. 8 AM: Tylenol 11 AM: Ibuprofen 2 PM: Tylenol 5 PM: Ibuprofen 8 PM: Tylenol 11 PM: Ibuprofen 2 AM: Tylenol 5 AM: Ibuprofen Follow up with your primary care provider if the condition is not improving within 1 week. If the condition worsens with numbness, tingling, decrease sensation with weakness seek treatment in the emergency room immediately. Patient Language: Albanian Prescriptions: New baclofen 10 mg tablet 10 mg PO TID 5 Days Qty: 15 0RF No Action amantadine HCl 100 mg capsule 100 mg PO BID carbidopa-levodopa 25-100 mg tablet 1 tablet PO Q4H Patient Comments: While awake sildenafil 25 mg tablet 25 mg PO PRN PRN (Reason: Sexual Activity) ofloxacin 0.3 % drops 10 drp RIGHT EAR DAILY 7 Days Qty: 5 0RF carbidopa-levodopa 25-100 mg tablet extended release 1 tablet PO QHS docusate sodium [Colace] 100 mg capsule 300 mg PO BID melatonin 10 mg capsule 20 mg PO QHS fluticasone propionate 50 mcg/actuation spray,suspension 2 spray NASAL BID PRN (Reason: Allergy Symptoms) Rx Instructions: administer into each nostril rosuvastatin 20 mg tablet 20 mg PO DAILY Qty: 90 2RF Follow-up/Referrals: Khang,MD Balbina [Primary Care Provider, [facility]] - 3 Days Time of Disposition: 09:43
== END 2025-09-19 09:44 | disposition home or self-care (01) ==
PROVIDERS: Emergency Provider Nurse Practitioner Family; PCP Family Medicine
DX: S29.011A Strain of muscle and tendon of front wall of thorax, initial encounter (principal); W01.0XXA Fall on same level from slipping, tripping and stumbling without subsequent striking against object, initial encounter; G20.B1 Parkinson's disease with dyskinesia, without mention of fluctuations; Z96.82 Presence of neurostimulator
CPT/HCPCS: 71100; 99213; G0463